=== PATIENT | female | born 2000 | race Caucasian/White ===

== ENCOUNTER 2023-10-19 12:38 | Emergency (ER) | payer OTHER, SELFPAY ==
[2023-10-19 12:40] VITALS: BP 128/67
--- NOTE | 2023-10-19 12:52 | ED.GENMED ---
History of Present Illness
General
Chief Complaint: Musculo-Skeletal Complaint
Time Seen by Provider: 10/19/23 12:52
Travel History
Have you had any contact with someone who has COVID-19?: No
Do you have any symptoms of coronavirus? Fever > 100 degrees, chills, cough, shortness of breath, sore throat, loss of taste or smell, muscle aches, or headache?: No
History of Present Illness
History of Present Illness:
HPI: Patient presents with coccygeal pain that started an hour and a half ago. However, she has had pain similar to this that was less severe over the past year. There is no direct trauma. She has been to massage therapists which helped her upper
back but the pain in the sacral region persists. She denies any other symptoms. The pain worsens with certain movements and position changes. She has good function to the lower extremities. She states she has never had imaging.
EXAM:
GENERAL: Well appearing in no distress
HEENT: Moist oral mucosa
NEUROLOGIC: Excellent strength all extremities, no coordination deficits, excellent distal lower extremity strength
PSYCHIATRIC: Appropriate mental status, normal insight and judgement
EXTREMITIES: Nontender, no edema, moves all extremities equally
BACK: There is no T or L-spine tenderness. There is mild tenderness diffusely of the sacrum. There is no tenderness at the ischial tuberosities. There is no pain with pelvic squeeze.
SKIN: No rash, no lesions
ED COURSE:
12:55 PM: I initially evaluated patient
NUMBER AND COMPLEXITY OF PROBLEMS ADDRESSED AT THE ENCOUNTER
� Chronic conditions affecting care: The patient has had chronic sacral pain over the past year
� Acute Exacerbation and/or Progression of Chronic Illness: Acute exacerbation of chronic pain
� Differential Diagnosis includes: Musculoskeletal sacral pain, sacral insufficiency fracture, malignancy
AMOUNT AND/OR COMPLEXITY OF DATA TO BE REVIEWED AND ANALYZED
� I performed an independent evaluation of and my interpretation is:
EKG:
CT:
X-rays: I personally viewed x-ray of the sacrum and see no acute abnormality and agree with radiologist interpretation
Laboratory Studies:
Other:
� Review of other/old records: I looked for old records in [facility] however there were no records found
� Clinical information was obtained by an independent historian: I spoke to her friend at bedside
� Prescriptions/Medications Considered but not given:
� Further testing considered but not performed:
RISK OF COMPLICATIONS AND/OR MORBIDITY OR MORTALITY OF PATIENT MANAGEMENT
� Social determinants of health affecting care: Attends [facility] locally
� Discussion with other providers:
� Escalation of care including admission/observation vs risk of discharge considered: The patient is not taken anything for pain today. Will try Motrin and obtain imaging as she has never had any diagnostic studies for this in
the past. Imaging unremarkable.
Phy Exam
Physical Exam
Physical Exam:
See HPI
Course
Orders/Labs/Results
Orders:
Orders
10/19/23 12:59
Ibuprofen [Motrin] 600 mg PO NOW STA
Sacrum/Coccyx 2 View CR [CR Sacrum/coccyx Min 2 View] Urgent
Comment:
Reason For Exam: pain sacrum worsening over past year, no trauma
Vital Signs
Initial and Last Documented VS:
Initial Vital Signs
Temp Pulse Resp BP Pulse Ox
98.2 F 81 16 128/67 100
10/19/23 12:40 10/19/23 12:40 10/19/23 12:40 10/19/23 12:40 10/19/23 12:40
Last Documented Vital Signs
Temp Pulse Resp BP Pulse Ox
98.2 F 80 16 95/65 100
10/19/23 12:40 10/19/23 14:12 10/19/23 12:40 10/19/23 14:12 10/19/23 12:40
*Critical Care Note
Total Time (30-74mins, 75-104mins- exclusive of procedures): Not Applicable
ED Attending Note
-
Portions of this chart may have been created with voice recognition software.� Occasional wrong word or��sound alike� substitutions may have occurred due to the inherent limitations of voice recognition software.
Discharge Plan
Departure
Patient Disposition: Home (Routine Discharge)
Date of Disposition: 10/19/23
Time of Disposition: 14:22
Patient with high blood pressure during this ER visit?: Yes
Discharge Problem:
Pain in sacrum
Referrals:
Pam Salgado I., DO [Active] - Follow up in 2-3 days
Activity Restrictions/Additional Instructions:
The cause of your pain is unclear. I have given you the contact information for a local orthopedist to follow-up with if symptoms persist. The radiologist read the x-ray and sees no acute abnormality. I recommend 3-4 [id number] ibuprofen
(Motrin) every 8 hours with food for a few days. Return here if worse.
Interventions
Interventions:
*Risk Screen - Suicide Last Done: 10/19/23 12:40
*General Assessment Last Done: 10/19/23 12:40
*Neglect/Abuse Screening Last Done: 10/19/23 12:40
ED- Fall Risk Assessment Last Done: 10/19/23 13:11
ED-Musculoskeletal Assessment Last Done: 10/19/23 13:11
[2023-10-19] MEDS: MOTRIN 600 MG PO (13:03)
[2023-10-19 14:12] VITALS: BP 95/65
[2023-10-19 14:48] VITALS: BP 95/65
== END 2023-10-19 14:48 | disposition home or self-care (01) ==
LOC: EMR 12:38
PROVIDERS: EMERGENCY PHYSICIAN Emergency Medicine
DX: M53.3 Sacrococcygeal disorders, not elsewhere classified (principal)
CPT/HCPCS: 99283; 72220